=== PATIENT | male | born 1930 ===

== ENCOUNTER 2017-01-18 16:57 | Inpatient (IN) | payer MEDICARE ==
[~2017-01-18] VITALS: Ht 160 cm; Wt 68.0 kg
--- NOTE | 2017-01-19 17:30 | NUR ---
Admitted patient in Acute Rehab Unit accompanied by med response per pedro. VSS with tolerable pain over right hip. Alert awake and oriented. Not in apparent distress. Patient oriented to unit and call light use. Routine admission care rendered.
[2017-01-19] MEDS ORDERED: LEVO750T21 PO (18:52)
[2017-01-19] MEDS ORDERED: RIVA20TA PO (18:57)
--- NOTE | 2017-01-19 19:00 | NUR ---
Received pt resting comfortably in bed. AAO x4. On room air. No SOB. No acute distress noted. No complaints of pain or discomfort at this time. Dressing noted on right hip, clean and intact. Pt is ambulatory. Requested commode and provided. Safety measures maintained. Call light within reach. Will continue to monitor.
--- NOTE | 2017-01-19 19:00 | NUR ---
Called and paged Dr. Anat marin will call back. Endorsed patient accordingly.
[2017-01-19] MEDS ORDERED: BETA15CR TP (19:22)
[2017-01-19] MEDS ORDERED: LEVO100T10 PO (19:22)
[2017-01-19] MEDS ORDERED: ATOR20TA PO (19:22)
[2017-01-19] MEDS ORDERED: METO25TA6 PO (19:22)
[2017-01-19] MEDS ORDERED: PANT40TA2 PO (19:22)
[2017-01-19] MEDS ORDERED: BENA20TA2 PO (19:22)
[2017-01-19] MEDS ORDERED: TAMS0.4C34 PO (19:22)
[2017-01-19] MEDS ORDERED: ASPI81TA31 PO (19:22)
[2017-01-19 20:00] VITALS: BP 107/53
--- NOTE | 2017-01-19 21:00 | NUR ---
Changed pt's dressing on right hip surgical wound sites (3) as per Dr. Montalvo's order. No ointment or cream to be applied. Kept clean and covered with Mepilex. Wounds are appropriately healing, clean and dry. No drainage. No signs of infection noted. Will continue to monitor.
--- NOTE | 2017-01-19 22:40 | NUR ---
Patient c/o pain on the right knee. Ice pack given. Pt verbalized it relieves pain just a little bit. Requesting for tramadol. No pain medication prescribed at this time. Will notify Dr. Coppola. Will continue to monitor patient.
--- NOTE | 2017-01-19 22:45 | NUR ---
Paged Dr. Coppola. No response. Will continue to monitor patient.
--- NOTE | 2017-01-19 23:15 | NUR ---
Paged Dr. Coppola again for patient's pain medication. No response. Will continue to monitor patient.
--- NOTE | 2017-01-19 23:30 | NUR ---
Dr. Coppola called back. Received telephone order for Tramadol Hcl 50 mg PO Q6H PRN for patient's pain. Will carry out order. Will continue to monitor patient.
--- NOTE | 2017-01-20 | NUR ---
Patient decided not to take Tramadol at this time. He verbalized that the ice packs are helping with the pain. Will continue to monitor.
--- NOTE | 2017-01-20 06:14 | NUR ---
Patient slept intermittently at night. Encouraged use of incentive spirometer while awake. Ice pack provided to decrease pain on right hip, tolerating well. Patient is ambulatory using walker. BRP/ Bedside commode. No signs of acute distress noted. Safety measures observed. Call light within reach. Continue to monitor.
[2017-01-20 13:39] VITALS: BP 122/66
--- NOTE | 2017-01-20 15:40 | NUR ---
pt seen on rounding. pt showed no signs of acute distress. pt seen by dr tariq. pt states that he had bronchitis. assessed o2 sat at 91. pt given 02 therapy nc at 2 liters. pt started to saturate at 95. blood clutures done and pending. meds given and participated in therapy. pt given tramadol for pain. pt tolerated therapy failly. pt encouraged lto use incentive spirometry. will continue to monitor for complications.
--- NOTE | 2017-01-20 17:32 | NUR ---
dressings changed no signs of infection. assisted to the bathroom and had a bm and voided.
--- NOTE | 2017-01-20 18:35 | NUR ---
pt stable throughout the day. 02 saturation decreased and applied o2 l nc satting at 95%. incentive spirometer used and no changes on 02 saturatio . pt stil has brusing and taking xarelto. wound site cleaned with betadine and reapplied new mepilex dressing. pt had no bm but voided using commode. pt seen by dr tariq. pt gets keplex for bronchitis and tramadol for pian. bp meds for htn however normal bp. blood cultures and respiratory cultures pending. cbc cmp mag and phos ordered for tomorrow. will endorse to awake overnight counselor.
[2017-01-20 19:54] VITALS: BP 101/60
--- NOTE | 2017-01-21 04:26 | NUR ---
AAOX4 OOB TO BEDSIDE COMMODE. NEEDED. VOIDING FREQUENTLY. VITAL SIGNS TAKEN AND RECORDED.BP 101/60 HR 88 RESP 18 TEMP 98.9 95% ON OXYGEN 2L. ATTENDED TO NEEDS. PATIENT KEEP ON GETTING IN AND OUT OF BED, SAY HE IS VERY UNCOMFORTABLE. SAT IN WHEELCHAIR FOR A WHILE, STILL CAN'T BE COMFORTABLE. TRAMADOL GIVEN TO RIGHT HIP PAIN. SLIGHT RELIEF NOTED. VOIDING WELL. WILL MONITOR PATIENT. BRUISING NOTED ON RIGHT HIP AREA, TAKES XARELTO.
[2017-01-21 07:49] LABS: BASOPHILS % (AUTO) 0.1 % (0.0-2.0); EOSINOPHILS # (AUTO) 0.3 K/uL (0.0-0.7); EOSINOPHILS % (AUTO) 3.2 % (0.0-7.0); HEMATOCRIT 25.5 % (40-50); HEMOGLOBIN 8.5 G/DL (14.0-18.0); LYMPHOCYTES % (AUTO) 10.4 % (20.5-51.5); MEAN CORPUSCULAR HEMOGLOBIN 29.9 UUG (27.0-31.0); MEAN CORPUSCULAR HGB CONC 33 g/dL (32.0-37.0); MEAN CORPUSCULAR VOLUME 89.7 FL (82.0-92.0); MONOCYTES # (AUTO) 0.9 K/UL (0.1-1.30); MONOCYTES % (AUTO) 9.6 % (0.0-11.0); NEUTROPHILS # (AUTO) 7.6 K/UL (1.8-8.9); NEUTROPHILS % (AUTO) 76.7 % (38.5-71.5); PLATELET COUNT (AUTO) 189 K/UL (150-450); RED BLOOD CELL COUNT(AUTO) 2.85 MIL/UL (4.7-6.1); WHITE BLOOD COUNT (AUTO) 9.8 K/UL (4.0-11.2)
[2017-01-21 07:52] VITALS: BP 132/62
[2017-01-21 08:03] LABS: MAGNESIUM 1.7 mg/dL (1.8-2.4)
[2017-01-21 10:05] LABS: CARBON DIOXIDE 28 mmol/L (21-32); CHLORIDE 100 mmol/L (98-107); GLUCOSE 89 mg/dL (74-106); POTASSIUM 3.9 mmol/L (3.5-5.1); UREA NITROGEN, BLOOD 22 mg/dL (7-18)
--- NOTE | 2017-01-21 13:22 | NUR ---
DAILY NOTE WANTS TYLENOL ONLY FOR PAIN DOES NOT LIKE ULTRAM. MD STARKS ORDERED TYLENOL PRN PAIN FOR HIM.
[2017-01-21 20:00] VITALS: BP 77/48
--- NOTE | 2017-01-21 20:00 | NUR ---
Received pt on bed alert and awake. Able to make needs known. No acute distress noted. No complaints of pain. On o2 2L/min, breathing even and unlabored with normal respirations. Call light within reach. All needs attended.
--- NOTE | 2017-01-21 21:00 | NUR ---
Pt complained of shivering. Pt was diaphoretic and pale upon assessment. Vital signs taken, BP was 77/47, HR 80, RR 20, Temp 98. 1, O2 94% on 2L NC. Immediately placed the pt on trendelenburg position, rechecked BP, BP went up to 90/48. However, after 5 mins it went down to 88/45 again. MD made aware. MD ordered IV 500 NS bolus. Order carried out and done. Will continue to monitor.
--- NOTE | 2017-01-21 22:00 | NUR ---
BP rechecked, BP went up to 92/48. However, after the IV fluid was infused BP went down to 84/47 again. Called [facility]. ordered another 1L of NS bolus. Order carried out and done. Will continue to monitor pt.
[2017-01-22 00:43] VITALS: BP 100/50
--- NOTE | 2017-01-22 02:10 | NUR ---
IV fluids given as ordered, BP 106/54. No acute distress noted. Pt verbalized that he feels much better now. No other complaints noted.
[2017-01-22 02:14] VITALS: BP 106/54
[2017-01-22 07:10] VITALS: BP 115/61
--- NOTE | 2017-01-22 07:11 | NUR ---
Pt slept well throughout the shift. Vital signs stable, BP 115/61, HR 82, RR 18, temp 98.4, O2 sat 98% on 2L NC. Denies any pain. All needs anticipated. Will endorse to the day shift nurse.
[2017-01-22 07:26] LABS: EOSINOPHILS # (AUTO) 0.5 K/uL (0.0-0.7); HEMATOCRIT 24.8 % (40-50); HEMOGLOBIN 8.4 G/DL (14.0-18.0); LYMPHOCYTES # (AUTO) 1.4 K/UL (0.8-4.8); LYMPHOCYTES % (AUTO) 11.9 % (20.5-51.5); MEAN CORPUSCULAR HEMOGLOBIN 30.9 UUG (27.0-31.0); MEAN CORPUSCULAR HGB CONC 34 g/dL (32.0-37.0); MEAN CORPUSCULAR VOLUME 90.8 FL (82.0-92.0); MONOCYTES # (AUTO) 0.9 K/UL (0.1-1.30); MONOCYTES % (AUTO) 7.9 % (0.0-11.0); NEUTROPHILS % (AUTO) 76.2 % (38.5-71.5); PLATELET COUNT (AUTO) 225 K/UL (150-450); RED BLOOD CELL COUNT(AUTO) 2.73 MIL/UL (4.7-6.1); WHITE BLOOD COUNT (AUTO) 11.8 K/UL (4.0-11.2)
[2017-01-22 07:30] VITALS: BP 119/62
[2017-01-22 07:42] LABS: CARBON DIOXIDE 25 mmol/L (21-32); CHLORIDE 104 mmol/L (98-107); CREATININE 0.9 mg/dL (0.6-1.3); GLUCOSE 101 mg/dL (74-106); MAGNESIUM 1.9 mg/dL (1.8-2.4); PHOSPHOROUS 3.5 mg/dL (2.5-4.9); POTASSIUM 3.9 mmol/L (3.5-5.1); UREA NITROGEN, BLOOD 19 mg/dL (7-18)
--- NOTE | 2017-01-22 09:36 | NUR ---
DAILY NOTE D/T THE EPISODE OF HYPOTENSION AND EXCESS BM AN DIARRHEA LAST NIGHT A RESULT OF TAKING LACTULOSE ORDERED FOR CONSTIPATION. HE HAS REFUSED HIS MORNING B/P MEDS AND DAILY SOFTENERS. B/P 110/62. STILL WITH FLATUS AND LOOSE STOOLS
--- NOTE | 2017-01-22 12:25 | NUR ---
Band Singer: SW met with pt, , and daughter at bedside to assess for needs and provide support. Pt is an 86-year-old male admitted to ARU for a right hip fracture. While in ARU pt will comply to rehab goals in order to strengthen functional decline and impaired mobility. Pt presented in a calm and cooperative mood during interview. When asked about his ARU admission pt stated "well I broke my leg and have other medical issues I'm working on." Pt did appear somewhat guarded, but did provide information. Per pt, he lives at home with his who was also present. Pt appears to have a strong support system, as family was present. He reported to use a cane and walker at home. Per pt, he was independent prior to being hospitalized. Pt stated his goal is to "walk again." SW engaged in active listening. SW provided emotional and supportive counseling. SW will provide linkage to community resources. SW will continue to be available as needed.
--- NOTE | 2017-01-22 19:30 | NUR ---
Received patient laying in bed. Alert and verbally responsive. Able to make needs known. Denies any pain and discomfort. No acute distress. No SOB. IV site on right hand. Patent and intact. No s/s of infiltration or bleeding. Kept clean and dry. All needs attended to promptly. Call light within reach. Will continue to monitor. Addendum: 01/22/17 at 2311 by BARBARA KYLE RN Correction: IV site on left hand.
[2017-01-22 20:00] VITALS: BP 112/61
--- NOTE | 2017-01-22 22:00 | NUR ---
Patient c/o spasms in right inner thigh describing them as lasting 10-15 seconds then going away. Pain felt only for awhile then goes away. Per patient, ice pack applied to inner groin area. Per patient it helps. Called [facility] and waiting call back from MD. All needs attended to promptly. Call light within reach. Will continue to monitor. Addendum: 01/22/17 at 2311 by BARBARA KYLE RN 0715: Dr. Danay Gaston called back. Made aware of patients complaints. Per MD, keep applying ice back to affected area. MD aware that patient had right hip fx s/o ORIF. Made patient aware of MD's directions. Pt. in no acute distress at this time. All needs attended to promptly. Call light within reach. Will continue to monitor.
--- NOTE | 2017-01-22 23:53 | NUR ---
Patient sleeping comfortably at this time. Non-labored breathing. No acute distress. No SOB. Will continue to monitor through out the night.
--- NOTE | 2017-01-23 06:07 | NUR ---
Patient slept intermittently through out the night. No c/o of spams to right inner thigh. No discomfort. No acute distress. Assisted to bedside commode as needed. Good pericare provided. Patient reminded to call for help at all times. Verbalizes understanding, but still tries to get OOB without calling. Explained risks and benefits and verbalizes understanding. All needs attended to promptly. Call light within reach. Will continue to monitor. Addendum: 01/23/17 at 0649 by BARBARA KYLE RN Correction: Spasms
[2017-01-23 07:20] VITALS: BP 123/71
--- NOTE | 2017-01-23 08:00 | NUR ---
Received patient awake alert and oriented x4. On bedside commode. Assisted accordingly. Morning care done. Not in apparent distress.
--- NOTE | 2017-01-23 09:00 | NUR ---
Right leg pain rated as 6/10. PRN Tylenol given. Tolerated breakfast well. Ready for occupational therapy.
--- NOTE | 2017-01-23 11:39 | NUR ---
Up with physical therapy. Tolerating therapy well. Pain level lat 4/10. Offered pain medications but refused.
[2017-01-23 19:30] VITALS: BP 123/57
--- NOTE | 2017-01-23 19:30 | NUR ---
RECEIVED PATIENT FROM DAY SHIFT NURSE. SHIFT REPORT GIVEN AT BEDSIDE. PATIENT A/O X4, WITH NO SIGNS OF PAIN OR DISTRESS. PERTINENT ASSESSMENTS DONE. CALL LIGHT PLACED WITHIN REACH OF PATIENT. WILL CONTINUE TO MONITOR PATIENT THROUGH OUT SHIFT.
--- NOTE | 2017-01-23 20:55 | NUR ---
PATIENT STATING THAT RX FOR FLOMAX SHOULD BE 0.8MG QD INSTEAD OF 0.[address] MARION NOTIFIED WITH NEW ORDERS FOR FLOMAX 0.8MG QD. PATIENT WAS ALSO SEEN BY MD HERNANDEZ DURING SHIFT WITH NEW ORDER FOR DIAZEPAM 2 MG PO HS PRN.
--- NOTE | 2017-01-24 06:53 | NUR ---
PATIENT SLEPT COMFORTABLY THROUGH OUT SHIFT. NO SIGNS OF PAIN OR DISCOMFORT. MEDICATIONS ADMINISTERED ORDERED. ALL NEEDS ATTENDED TO.
[2017-01-24 07:30] VITALS: BP 114/55
--- NOTE | 2017-01-24 08:00 | NUR ---
Received patient awake, alert x4. With tolerable pain over R leg, refuses pain medications. Not in any form of distress. No SOB, Spo2 at 95% in RA. Call light within reach.
--- NOTE | 2017-01-24 12:37 | NUR ---
R LEG PAIN RATED 6/10. PRN PAIN MEDICATION GIVEN
--- NOTE | 2017-01-24 13:49 | NUR ---
Interdisciplinary Meeting Summary
--- NOTE | 2017-01-24 15:35 | NUR ---
With daughter at bedside. Was able to go around hospital with wheelchair.
--- NOTE | 2017-01-24 19:30 | NUR ---
RECEIVED PATIENT FROM DAY SHIFT NURSE. PATIENT A/O X4 WITH NO SIGNS OF PAIN OR DISTRESS. PATIENT LYING COMFORTABLY ON BED. PERTINENT ASSESSMENTS DONE. ABLE TO MAKE NEEDS KNOWN. CALL LIGHT PLACED WITHIN REACH OF PATIENT. WILL CONTINUE TO MONITOR PATIENT THROUGH OUT SHIFT.
[2017-01-24 20:20] VITALS: BP 93/51
[2017-01-24 20:51] VITALS: BP 93/51
[2017-01-24 23:00] VITALS: BP 103/60
--- NOTE | 2017-01-25 06:44 | NUR ---
PATIENT SLEPT INTERMITTENTLY THROUGH THE NIGHT. NO SIGNS OF PAIN OR DISCOMFORT. NO SOB. ALL NEEDS ATTENDED TO. ALL MEDS ADMINISTERED ORDERED. SHIFT REPORT TO BE GIVEN AT BEDSIDE TO DAY SHIFT NURSE.
--- NOTE | 2017-01-25 09:19 | NUR ---
PT REPORT RECEIVED, BOARD UPDATED, AND PT ASSESSED. PT DENIES ANY PAIN AND NO DISTRESS NOTED. PT COMPLIANT WITH ROUTINE MORNING MEDICATION ADMINISTRATION. PT REFUSED ORDERED DOSE OF SENNOSIDES DOCUSATE SODIUM R/T HAVING BM X2 PRIOR TO 0915 THIS MORNING, STATING THIS IS AN EXCESSIVE AMOUNT. V/S STABLE. ALL COMFORT AND SAFETY MEASURES MET AT THIS TIME. CALL LIGHT PLACED WITHIN REACH WILL CONTINUE TO MONITOR PT STATUS.
[2017-01-25 10:16] VITALS: BP 109/63
--- NOTE | 2017-01-25 12:11 | NUR ---
PT STATES PAIN LEVEL 5/10 REQUESTING 1 TYLENOL TABLET INSTEAD OF THE ORIGINAL 2 TABLET DOSE. MD NOTIFIED, APPROVED ONE TIME ADJUSTMENT. 1 TABLET ADMINISTERED AT THIS TIME, AND SECOND TABLET RETURNED. WILL CONTINUE TO MONITOR PAIN MANAGEMENT.
--- NOTE | 2017-01-25 18:49 | NUR ---
PT SITTING COMFORTABLY UP IN BED. PT DENIES ANY PAIN SINCE THIS AFTERNOON. ALL COMFORT AND SAFETY MEASURES HAVE BEEN ENSURED. CALL LIGHT AND PERSONAL ITEMS ARE WITHIN REACH. WILL CONTINUE TO MONITOR AND ENDORSE ACADEMIC ADVISEMENT DIRECTOR.
--- NOTE | 2017-01-25 20:00 | NUR ---
Received pt on bed alert, awake and oriented x4. Able to make needs known. No s/s distress. No complaints of pain or discomfort during this time. No SOB. Vital signs stable, BP 97/50, HR 68, RR 18, Temp 97.4, O2 sat 96% RA. All needs attended.
[2017-01-25 20:56] VITALS: BP 88/53
--- NOTE | 2017-01-25 21:00 | NUR ---
Pt has an order for norco PRN for pain, however, the pt wants this medication to be changed to tramadol. Assessed patient's pain level, it was 3/10. Offered tylenol PRN, pt agreed and after taking the medication pt verbalized that he changed his mind regarding the tramadol and he'll just ask for norco if needed.
[2017-01-25 21:30] VITALS: BP 97/50
--- NOTE | 2017-01-25 21:30 | NUR ---
Reassessed patient, pt sleeping comfortably. No acute distress noted. No complaints of pain during this time. All needs attended.
--- NOTE | 2017-01-26 05:40 | NUR ---
Patient slept well. No acute distress noted. No complaints of pain or discomfort. Assisted to the commode, pt tolerated well. Frequently checked for safety. Encouraged to verbalize needs and concerns and to call for assistance. Call light within reach. All needs attended
[2017-01-26 07:43] LABS: BASOPHILS % (AUTO) 0.3 % (0.0-2.0); EOSINOPHILS # (AUTO) 0.1 K/uL (0.0-0.7); EOSINOPHILS % (AUTO) 1.3 % (0.0-7.0); HEMATOCRIT 24.6 % (36.7-47.1); HEMOGLOBIN 8.7 g/dL (12.5-16.3); LYMPHOCYTES # (AUTO) 1.9 K/uL (20.0-40.0); LYMPHOCYTES % (AUTO) 16.4 % (20.5-51.5); MEAN CORPUSCULAR HEMOGLOBIN 31.5 uug (23.8-33.4); MEAN CORPUSCULAR HGB CONC 35 g/dL (32.5-36.3); MEAN CORPUSCULAR VOLUME 89.8 fL (73.0-96.2); MONOCYTES # (AUTO) 0.8 K/uL (2.0-10.0); MONOCYTES % (AUTO) 7.5 % (0.0-11.0); NEUTROPHILS # (AUTO) 8.4 K/uL (1.8-8.9); NEUTROPHILS % (AUTO) 74.5 % (38.5-71.5); PLATELET COUNT (AUTO) 302 K/uL (152-348); RED BLOOD CELL COUNT(AUTO) 2.74 MIL/uL (4.06-5.63); WHITE BLOOD COUNT (AUTO) 11.3 K/uL (3.6-10.2)
[2017-01-26 07:55] LABS: THYROID STIMULATING HORMONE 9.953 mIU/mL (0.358-3.740)
[2017-01-26 08:23] LABS: ALANINE AMINOTRANSFERASE 32 U/L (16-63); ALKALINE PHOSPHATASE 62 U/L (50-136); ASPARTATE AMINOTRANSFERASE 33 U/L (15-37); BILIRUBIN,TOTAL 1.2 mg/dL (0.2-1.0); CARBON DIOXIDE 29 mmol/L (21-32); CHLORIDE 103 mmol/L (98-107); CHOLESTEROL 95 mg/dL (<200); CREATININE 0.9 mg/dL (0.6-1.3); GLUCOSE 107 mg/dL (74-106); HDL CHOLESTEROL 32 mg/dL (40-60); MAGNESIUM 1.6 mg/dL (1.8-2.4); PHOSPHOROUS 3.9 mg/dL (2.5-4.9); POTASSIUM 3.9 mmol/L (3.5-5.1); TOTAL PROTEIN, SERUM 5.4 g/dL (6.4-8.2); TRIGLYCERIDES 116 MG/DL (30-150); UREA NITROGEN, BLOOD 11 mg/dL (7-18); URIC ACID 4.2 mg/dL (3.5-7.2)
[2017-01-26 08:31] VITALS: BP 92/59
--- NOTE | 2017-01-26 10:32 | NUR ---
pt seen on rounding. pt had low blood pressure. pt asympotmatic satting wnl on o2. pt room air and tolerates. no cough noted. witheld bp meds. pt states that he gets too much bp meds. pt also concerned about tylenol overdosage and requests to speak with dr acosta. pt tolerated therapy and given tylenol for pain. labs wbc slightly increase. will cotninue to monitor.
[2017-01-26 13:33] LABS: BAND % (MANUAL) 3 % (0-10); LYMPHOCYTES % (MANUAL) 14 % (20-40); METAMYELOCYTES % 4 % (0-1); MONOCYTES % (MANUAL) 8 % (2-10); MYELOCYTES % 2 % (0-0); NEUTROPHILS % (MANUAL) 69 % (42-75)
--- NOTE | 2017-01-26 16:57 | NUR ---
PT REQUESTS TO SEE DAVID TO CLARIFY MEDICATIONS. PT STATES THAT HE DOESNT SLEEP WEEL AND HAS LUCID DREAMS DURING THE DAY.
--- NOTE | 2017-01-26 19:30 | NUR ---
Received patient sitting on bed, watching TV. AAO x4. No acute distress noted. Pt seen by Dr. Montalvo. Vital signs WNL, except BP 91/60. Safety measures maintained. Call light within reach. Will continue to closely monitor patient.
[2017-01-26 20:00] VITALS: BP 91/60
--- NOTE | 2017-01-26 20:00 | NUR ---
Patient is taking Flomax 0.8 mg PO daily in the morning. Dr. Montalvo ordered to change it to HS. talked about this with the patient. Will follow.
--- NOTE | 2017-01-27 05:42 | NUR ---
Patient slept intermittently t/o the night. C/o pain on the hip and leg area. Repositioned patient. Pain unrelieved by repositioning. Gave pain medication as prescribed. Assisted to bedside commode as needed. No signs of acute distress noted. All needs attended to promptly. Safety measures maintained. Call light within reach. Continue to monitor.
--- NOTE | 2017-01-27 07:30 | NUR ---
Received patient laying in bed, resting and watching TV. AAO x4. No acute distress noted. C/o pain on the right hip 10/30. Vital signs stable. Safety measures maintained. Call light within reach. Will continue to monitor. Addendum: 01/27/17 at 2119 by Ramiro Lechuga RN Wrong time. Not 0730, but 1930.
--- NOTE | 2017-01-27 07:42 | NUR ---
Patient noted sitting in wheelchair alert and awake, complains of a pain level 4/10 but states he does not need pain medication yet instead he will elevate right leg, no signs of distress noted, no shortness of breath noted.
[2017-01-27 08:19] VITALS: BP 86/43
--- NOTE | 2017-01-27 19:30 | NUR ---
Received patient laying in bed, resting and watching TV. AAO x4. No acute distress noted. C/o pain on the right hip 10/30. Vital signs stable. Safety measures maintained. Call light within reach. Will continue to monitor.
[2017-01-27 20:14] VITALS: BP 112/56
--- NOTE | 2017-01-28 05:40 | NUR ---
Patient slept comfortably at night. Vital signs stable. No acute distress noted. No c/o pain. Assisted to restroom as needed. Medications given as prescribed. All needs attended to promptly. Safety measures maintained. Call light within reach. Will endorse to day shift RN. Continue to monitor.
[2017-01-28 07:10] VITALS: BP 110/56
--- NOTE | 2017-01-28 19:30 | NUR ---
Received patient sitting on a chair, resting and watching TV. AAO x4. No signs of acute distress noted. No SOB. Safety measures maintained. Call light within reach. Will continue to monitor.
[2017-01-28 20:00] VITALS: BP 91/48
--- NOTE | 2017-01-29 05:50 | NUR ---
Slept intermittently at night. C/o pain and asked for pain medication. Gave medication as prescribed. All needs attended t/o the night. No acute distress noted. No SOB. Vital signs stable. Safety measures maintained. Call light within reach. Will give shift report at bedside. Continue to monitor.
--- NOTE | 2017-01-29 07:00 | NUR ---
Received patient asleep, lying on bed with head of bed elevated above 30 degrees, no moaning or facial grimace noted. call light placed within reach. patient easily aroused. Responsive to verbal and tactile stimuli. All needs were attended and anticipated. Encouraged patient to use call light whenever assistance is needed.
[2017-01-29 07:05] VITALS: BP 107/49
--- NOTE | 2017-01-29 09:53 | NUR ---
Patient awake, alert and oriented, doing physical therapy in the rehab room without SOB, distress or discomforts at this time. Will continue to monitor.
--- NOTE | 2017-01-29 13:35 | NUR ---
patient awake, alert and oriented sitting on the chair talking to family members at bedside with no SOB, distress or any discomforts. call light placed within patient's reach. Will continue to monitor.
--- NOTE | 2017-01-29 15:20 | NUR ---
Patient awake, alert and oriented, sitting on his wheelchair inside the room with no complaints of pain or discomforts at this time. No SOB or distress noted. Call light noted within reach. Will continue to monitor.
--- NOTE | 2017-01-29 18:48 | NUR ---
Patient awake, alert sitting on his wheelchair with no SOB, distress or any discomforts at this time. All needs were attended and anticipated. call light within reach. Encouraged patient to use call light whenever assistance is needed.
--- NOTE | 2017-01-29 19:30 | NUR ---
Received pt awake, alert and oriented, sitting at the edge of the bed. Bed locked, in lowest position and side rails up x 2. Assisted into bed. HOB elevated 45 degrees. No acute distress noted. Pt is verbally responsive and able to make needs known. Denies pain or discomfort at this time. All safety measures and fall precautions maintained. Call light within reach. Will continue to monitor.
[2017-01-29 20:25] VITALS: BP 107/52
--- NOTE | 2017-01-30 06:14 | NUR ---
Pt slept well throughout the shift. Verbally responsive and able to make needs known. All needs anticipated and met promptly. No acute distress noted. Denies pain or discomfort. Assisted to use bedside commode x 3. Tolerated all medications well. All safety measures and fall precautions maintained. Call light within reach. Will continue to monitor.
[2017-01-30 08:06] VITALS: BP 112/51
--- NOTE | 2017-01-30 20:00 | NUR ---
Received pt on bed, awake, alert and oriented x4. Able to make needs known. No complaints of pain or discomfort during this time. No acute distress noted. All due meds given as ordered and well tolerated. Vital signs stable, BP 101/52, HR 92, RR 20, Temp 98.4. Call light within reach. All needs attended
[2017-01-30 20:42] VITALS: BP 82/53
[2017-01-30 22:57] VITALS: BP 101/52
--- NOTE | 2017-01-31 05:37 | NUR ---
Pt slept well throughout the shift. No s/s distress. Complained of right hip pain, medicated with tramadol as ordered. Relief noted. Safety precautions maintained. Call light within reach. All needs met
--- NOTE | 2017-01-31 07:50 | NUR ---
SBAR RECEIVED FROM MANAGER FASHION NURSE, PATIENT ASLEEP IN BED, STATES PAIN LEVEL IS A 4/10 BUT DENIES THE NEED FOR PAIN MEDICATION, NO SIGNS OF DISTRESS, CALL LIGHT IN REACH, BED LOCKED AND IN LOWEST POSITION. ALL NEEDS MET
[2017-01-31 08:38] VITALS: BP 116/63
--- NOTE | 2017-01-31 14:24 | NUR ---
INTERDISCIPLINARY REHAB MEETING
--- NOTE | 2017-01-31 19:20 | NUR ---
Received pt in bed, awake alert and oriented, watching TV. Verbally responsive and able to make needs known. Denies pain or discomfort at this time, no acute distress noted. All safety measures and fall precautions maintained. Call light within reach. Will continue to monitor.
[2017-01-31 20:48] VITALS: BP 102/54
--- NOTE | 2017-02-01 06:11 | NUR ---
Pt slept well throughout the shift, waking up intermittently to use bedside commode. Assisted with ambulating to commode. No complaints of pain or discomfort. No acute distress noted. Call light within reach. Tolerated all medications well. All safety measures and fall precautions maintained. Will continue to monitor.
--- NOTE | 2017-02-01 07:51 | NUR ---
PATIENT NOTED SITTING ON SIDE OF THE BED, SBAR RECEIVED FROM NAILER MACHINE, PAIN MEDICATION GIVEN BY NAILER MACHINE NURSE, NO COMPLAINTS OF PAIN AT THIS TIME, NO SIGNS OF DISTRESS NOTED, CALL LIGHT IN REACH, BED LOCKED AND IN THE LOWEST POSITION
[2017-02-01 08:00] VITALS: BP 115/66
--- NOTE | 2017-02-01 13:50 | NUR ---
101/67, 98% ON ROOM AIR, 75 PULSE, 98.1 ORAL TEMP, LOW BLOOD PRESSURE IS A COMMON FINDING, PATIENT LEFT FACILITY AT 1349 VIA WHEEL CHAIR IN PRIVATE CAR, [facility] IN PLACE TO PROVIDE HOME HEALTH SERVICES, DISCHARGE INSTRUCTIONS PROVIDED, EXIT CARE PROVIDED, PHARMACY CALLED FOR MEDICATION EDUCATION, PATIENT STABLE, NO COMPLAINTS OF PAIN, NO SIGNS OF DISTRESS, SURGICAL SITE DRY WITH NO SIGNS OF INFECTION NOTED, MEDICATIONS FAXED TO [facility] ON [address] IN CHART
--- NOTE | 2017-02-01 14:09 | NUR ---
Patient discharged home with [facility]. Also given DMEs, Walker and shower chair to be delivered to patient. Patient also set up with primary physician, Dr. Tacho Chicas.
== END 2017-02-01 13:49 | disposition home health service (06) | DRG 559 ==
LOC: UNDOADMIN 16:57
PROVIDERS: ADMIT Physical Medicine & Rehabilitation Pain Medicine; ATTEND Physical Medicine & Rehabilitation Pain Medicine
DX: S72.141D Displaced intertrochanteric fracture of right femur, subsequent encounter for closed fracture with routine healing (principal); J18.9 Pneumonia, unspecified organism; E43 Unspecified severe protein-calorie malnutrition; I11.0 Hypertensive heart disease with heart failure; D68.59 Other primary thrombophilia; G62.9 Polyneuropathy, unspecified; I50.32 Chronic diastolic (congestive) heart failure; E83.39 Other disorders of phosphorus metabolism; D62 Acute posthemorrhagic anemia; E83.42 Hypomagnesemia; K59.00 Constipation, unspecified; W18.30XD Fall on same level, unspecified, subsequent encounter; I25.2 Old myocardial infarction; I25.10 Atherosclerotic heart disease of native coronary artery without angina pectoris; R26.9 Unspecified abnormalities of gait and mobility; M81.0 Age-related osteoporosis without current pathological fracture; Z96.649 Presence of unspecified artificial hip joint; M19.90 Unspecified osteoarthritis, unspecified site; E03.9 Hypothyroidism, unspecified; G47.00 Insomnia, unspecified; I87.2 Venous insufficiency (chronic) (peripheral); K44.9 Diaphragmatic hernia without obstruction or gangrene; N40.0 Benign prostatic hyperplasia without lower urinary tract symptoms; Z66 Do not resuscitate; I95.89 Other hypotension
CPT/HCPCS: 36415; 82306; 83735; 84100; 84443; 84550; 85025; 87040; 92526; 92610; 97110; 97112; 97116; 97165; 97530; 97535; J2060; J7030; J7040

== ENCOUNTER 2017-08-04 15:31 | Inpatient (IN) | payer MEDICARE ==
[~2017-08-04] VITALS: Ht 160 cm; Wt 71.7 kg
[~2017-08-04 15:31] MED LIST: ASPI81TA31 PO; ATOR20TA PO; BENA20TA2 PO; BETA15CR TP; LEVO100T10 PO; LEVO750T21 PO; METO25TA6 PO; PANT40TA2 PO; RIVA20TA PO
[2017-08-04] MEDS ORDERED: ACET-2154 PO (15:40)
[2017-08-04] MEDS ORDERED: BENA40TA67 PO (15:49)
[2017-08-04] MEDS ORDERED: ASPI-612 PO (15:49)
[2017-08-04] MEDS ORDERED: GABA-536 PO (15:49)
[2017-08-04] MEDS ORDERED: HYDR-3326 PO (15:49)
[2017-08-04] MEDS ORDERED: DEXA4VIA47 IV (15:49)
[2017-08-04] MEDS ORDERED: MAGN400O6 PO (16:07)
[2017-08-04] MEDS ORDERED: HYDR-3980 PO (16:07)
[2017-08-04] MEDS ORDERED: TAMS-3 PO (16:07)
[2017-08-04] MEDS ORDERED: MAG355OR18 PO (16:07)
[2017-08-04] MEDS ORDERED: ZOLP5TAB8 PO (16:07)
[2017-08-04] MEDS ORDERED: LIDO30AD10 TD (16:07)
[2017-08-04] MEDS ORDERED: LEVO100T10 PO (16:07)
[2017-08-04] MEDS ORDERED: PANT40TA4 PO (16:07)
[2017-08-04] MEDS ORDERED: ONDA4TAB10 PO (16:07)
[2017-08-04] MEDS ORDERED: METO37.5 PO (16:07)
[2017-08-04] MEDS ORDERED: Z GUARD REMEDY PASTE 57 GM TUBE TOP PRN (16:30)
[2017-08-04] MEDS ORDERED: BETAMET DP 0.05% AUGM CR 15 GM CREAM.GM. TP SCH (17:30)
[2017-08-04] MEDS ORDERED: ZOLPIDEM 5 MG TABLET PO PRN (17:30)
[2017-08-04] MEDS ORDERED: ONDANSETRON HCL 4 MG TABLET PO PRN (17:30)
[2017-08-04] MEDS ORDERED: HYDROCODONE/APAP 10-325 MG TABLET PO SCH (17:30)
[2017-08-04] MEDS ORDERED: DEXAMETHASONE SOD PHOSPHATE 4 MG INJ IV SCH (18:00)
[2017-08-04] MEDS: DEXAMETHASONE SOD PHOSPHATE 4 MG INJ IV SCH (18:56)
[2017-08-04] MEDS: DOCUSATE SODIUM 100 MG CAPSULE PO SCH (20:42)
[2017-08-04] MEDS: ATORVASTATIN 20 MG TABLET PO SCH (20:42)
[2017-08-04 20:56] VITALS: BP 135/66
[2017-08-05] MEDS: DEXAMETHASONE SOD PHOSPHATE 4 MG INJ IV SCH ×4 (00:26→17:27)
[2017-08-05] MEDS: LEVOTHYROXINE SODIUM 100 MCG TABLET PO SCH (06:15)
[2017-08-05] MEDS: PANTOPRAZOLE SODIUM 40 MG TABLET.DR PO SCH (06:15)
[2017-08-05] MEDS: HYDROCODONE/APAP 10-325 MG TABLET PO PRN ×2 (08:02→21:37)
[2017-08-05] MEDS: GABAPENTIN 400 MG CAPSULE PO SCH ×3 (08:52→17:27)
[2017-08-05] MEDS: ASPIRIN 81 MG TAB.CHEW PO SCH (08:52)
[2017-08-05] MEDS ORDERED: BENAZEPRIL HCL 20 MG TABLET PO SCH (09:00)
[2017-08-05] MEDS ORDERED: METOPROLOL TARTRATE 25 MG TABLET PO SCH (09:00)
[2017-08-05] MEDS ORDERED: LIDOCAINE 5% PATCH TD SCH (09:00)
[2017-08-05] MEDS ORDERED: LEVOFLOXACIN 750 MG TABLET PO SCH (09:00)
[2017-08-05] MEDS: BENAZEPRIL HCL 5 MG TABLET PO SCH (09:00)
[2017-08-05] MEDS ORDERED: TAMSULOSIN HCL 0.4 MG CAP.SR.24H PO SCH (09:00)
[2017-08-05 09:04] VITALS: BP 134/75
[2017-08-05 20:00] VITALS: BP 119/63
[2017-08-05] MEDS: DOCUSATE SODIUM 100 MG CAPSULE PO SCH (20:22)
[2017-08-05] MEDS: ATORVASTATIN 20 MG TABLET PO SCH (20:23)
[2017-08-05] MEDS: METOPROLOL TARTRATE 25 MG TABLET PO SCH (20:23)
[2017-08-05] MEDS: TAMSULOSIN HCL 0.4 MG CAP.SR.24H PO SCH (20:23)
[2017-08-05] MEDS: DIAZEPAM 5 MG TABLET PO PRN (20:29)
[2017-08-05] MEDS: ACETAMINOPHEN 325 MG TABLET PO PRN (20:29)
[2017-08-06] MEDS: DEXAMETHASONE SOD PHOSPHATE 4 MG INJ IV SCH ×4 (00:48→17:29)
[2017-08-06] MEDS: LEVOTHYROXINE SODIUM 100 MCG TABLET PO SCH (07:27)
[2017-08-06] MEDS: PANTOPRAZOLE SODIUM 40 MG TABLET.DR PO SCH (07:27)
[2017-08-06] MEDS: METOPROLOL TARTRATE 25 MG TABLET PO SCH ×2 (08:48→21:33)
[2017-08-06] MEDS: ASPIRIN 81 MG TAB.CHEW PO SCH (08:48)
[2017-08-06] MEDS: GABAPENTIN 400 MG CAPSULE PO SCH ×3 (08:49→16:26)
[2017-08-06] MEDS: BENAZEPRIL HCL 5 MG TABLET PO SCH (08:49)
[2017-08-06 10:50] VITALS: BP 130/66
[2017-08-06] MEDS ORDERED: BISACODYL 10 MG SUPP.RECT RC PRN (16:15)
[2017-08-06] MEDS: BISACODYL 5 MG TABLET.DR PO PRN (16:26)
[2017-08-06] MEDS: DOCUSATE SODIUM 100 MG CAPSULE PO SCH (21:00)
[2017-08-06 21:05] VITALS: BP 112/59
[2017-08-06] MEDS: ATORVASTATIN 20 MG TABLET PO SCH (21:26)
[2017-08-06] MEDS: TAMSULOSIN HCL 0.4 MG CAP.SR.24H PO SCH (21:26)
[2017-08-06] MEDS: ACETAMINOPHEN 325 MG TABLET PO PRN (21:33)
[2017-08-06] MEDS: DIAZEPAM 5 MG TABLET PO PRN (21:33)
[2017-08-07] MEDS: DEXAMETHASONE SOD PHOSPHATE 4 MG INJ IV SCH ×4 (00:01→17:12)
[2017-08-07] MEDS: LEVOTHYROXINE SODIUM 100 MCG TABLET PO SCH (06:04)
[2017-08-07] MEDS: PANTOPRAZOLE SODIUM 40 MG TABLET.DR PO SCH (06:04)
[2017-08-07 08:00] VITALS: BP 112/62
[2017-08-07] MEDS: ASPIRIN 81 MG TAB.CHEW PO SCH (10:02)
[2017-08-07] MEDS: GABAPENTIN 400 MG CAPSULE PO SCH ×3 (10:02→16:12)
[2017-08-07] MEDS: METOPROLOL TARTRATE 25 MG TABLET PO SCH ×2 (10:03→21:00)
[2017-08-07] MEDS: BENAZEPRIL HCL 5 MG TABLET PO SCH (10:05)
[2017-08-07 13:02] VITALS: BP 112/62
[2017-08-07] MEDS: ACETAMINOPHEN 325 MG TABLET PO PRN ×2 (13:42→21:22)
[2017-08-07 20:33] VITALS: BP 107/62
[2017-08-07] MEDS: DOCUSATE SODIUM 100 MG CAPSULE PO SCH (21:19)
[2017-08-07] MEDS: ATORVASTATIN 20 MG TABLET PO SCH (21:20)
[2017-08-07] MEDS: TAMSULOSIN HCL 0.4 MG CAP.SR.24H PO SCH (21:20)
[2017-08-07] MEDS: DEXAMETHASONE 4 MG TABLET PO SCH (21:21)
[2017-08-07] MEDS: DIAZEPAM 5 MG TABLET PO PRN (21:22)
[2017-08-08] MEDS: LEVOTHYROXINE SODIUM 100 MCG TABLET PO SCH (06:14)
[2017-08-08] MEDS: PANTOPRAZOLE SODIUM 40 MG TABLET.DR PO SCH (06:14)
[2017-08-08 07:30] VITALS: BP 133/74
[2017-08-08] MEDS: METOPROLOL TARTRATE 25 MG TABLET PO SCH ×2 (08:35→21:00)
[2017-08-08] MEDS: ASPIRIN 81 MG TAB.CHEW PO SCH (08:35)
[2017-08-08] MEDS: GABAPENTIN 400 MG CAPSULE PO SCH ×3 (08:35→17:28)
[2017-08-08] MEDS: DEXAMETHASONE 4 MG TABLET PO SCH ×2 (08:35→21:17)
[2017-08-08] MEDS: BENAZEPRIL HCL 5 MG TABLET PO SCH (08:38)
[2017-08-08 19:30] VITALS: BP 113/59
[2017-08-08] MEDS: DOCUSATE SODIUM 100 MG CAPSULE PO SCH (21:16)
[2017-08-08] MEDS: TAMSULOSIN HCL 0.4 MG CAP.SR.24H PO SCH (21:17)
[2017-08-08] MEDS: ACETAMINOPHEN 325 MG TABLET PO PRN (21:18)
[2017-08-08] MEDS: ATORVASTATIN 20 MG TABLET PO SCH (21:19)
[2017-08-08] MEDS: DIAZEPAM 5 MG TABLET PO PRN (21:19)
[2017-08-09] MEDS: LEVOTHYROXINE SODIUM 100 MCG TABLET PO SCH (06:33)
[2017-08-09] MEDS: PANTOPRAZOLE SODIUM 40 MG TABLET.DR PO SCH (06:33)
[2017-08-09] MEDS: ACETAMINOPHEN 325 MG TABLET PO PRN ×3 (06:39→20:23)
[2017-08-09 08:00] VITALS: BP 125/71
[2017-08-09] MEDS: ASPIRIN 81 MG TAB.CHEW PO SCH (09:46)
[2017-08-09] MEDS: DEXAMETHASONE 4 MG TABLET PO SCH ×2 (09:47→20:23)
[2017-08-09] MEDS: GABAPENTIN 400 MG CAPSULE PO SCH ×3 (09:48→17:01)
[2017-08-09] MEDS: BENAZEPRIL HCL 5 MG TABLET PO SCH (09:48)
[2017-08-09] MEDS: METOPROLOL TARTRATE 25 MG TABLET PO SCH ×2 (09:51→20:22)
[2017-08-09] MEDS: DOCUSATE SODIUM 100 MG CAPSULE PO SCH (20:21)
[2017-08-09] MEDS: TAMSULOSIN HCL 0.4 MG CAP.SR.24H PO SCH (20:23)
[2017-08-09] MEDS: DIAZEPAM 5 MG TABLET PO PRN (20:23)
[2017-08-09] MEDS: ATORVASTATIN 20 MG TABLET PO SCH (20:23)
[2017-08-09 20:26] VITALS: BP 103/57
[2017-08-10] MEDS: LEVOTHYROXINE SODIUM 100 MCG TABLET PO SCH (06:31)
[2017-08-10] MEDS: PANTOPRAZOLE SODIUM 40 MG TABLET.DR PO SCH (06:31)
[2017-08-10 08:00] VITALS: BP 120/67
[2017-08-10] MEDS: ASPIRIN 81 MG TAB.CHEW PO SCH (08:08)
[2017-08-10] MEDS: ACETAMINOPHEN 325 MG TABLET PO PRN ×2 (08:08→21:01)
[2017-08-10] MEDS: GABAPENTIN 400 MG CAPSULE PO SCH ×3 (08:08→17:29)
[2017-08-10] MEDS: BENAZEPRIL HCL 5 MG TABLET PO SCH ×2 (08:08→09:00)
[2017-08-10] MEDS: DEXAMETHASONE 4 MG TABLET PO SCH (08:08)
[2017-08-10] MEDS: METOPROLOL TARTRATE 25 MG TABLET PO SCH ×2 (08:09→21:00)
[2017-08-10 15:58] VITALS: BP 125/71
[2017-08-10 19:50] VITALS: BP 110/62
[2017-08-10] MEDS: ATORVASTATIN 20 MG TABLET PO SCH (21:00)
[2017-08-10] MEDS: TAMSULOSIN HCL 0.4 MG CAP.SR.24H PO SCH (21:00)
[2017-08-10] MEDS: DIAZEPAM 5 MG TABLET PO PRN (21:01)
[2017-08-10] MEDS: DOCUSATE SODIUM 100 MG CAPSULE PO SCH (21:01)
[2017-08-11] MEDS: ACETAMINOPHEN 325 MG TABLET PO PRN ×3 (04:30→20:59)
[2017-08-11] MEDS: PANTOPRAZOLE SODIUM 40 MG TABLET.DR PO SCH (06:36)
[2017-08-11] MEDS: LEVOTHYROXINE SODIUM 100 MCG TABLET PO SCH (06:36)
[2017-08-11 06:55] VITALS: BP 108/61
[2017-08-11 06:59] LABS: CARBON DIOXIDE 28 mmol/L (21-32); CHLORIDE 101 mmol/L (98-107); CREATININE 0.8 mg/dL (0.6-1.3); GLUCOSE 84 mg/dL (74-106); PHOSPHOROUS 3.3 mg/dL (2.5-4.9); POTASSIUM 3.9 mmol/L (3.5-5.1); UREA NITROGEN, BLOOD 25 mg/dL (7-18)
[2017-08-11 07:10] LABS: HEMOGLOBIN 11.3 g/dL (12.5-16.3); MEAN CORPUSCULAR HEMOGLOBIN 25.7 uug (23.8-33.4); MONOCYTES # (AUTO) 1.4 K/uL (2.0-10.0)
[2017-08-11 07:54] LABS: EOSINOPHILS % (AUTO) 0.2 % (0.0-7.0); HEMATOCRIT 34.7 % (36.7-47.1); LYMPHOCYTES # (AUTO) 2.3 K/uL (20.0-40.0); LYMPHOCYTES % (AUTO) 19.6 % (20.5-51.5); MEAN CORPUSCULAR HGB CONC 33 g/dL (32.5-36.3); MEAN CORPUSCULAR VOLUME 79.2 fL (73.0-96.2); MONOCYTES % (AUTO) 11.7 % (0.0-11.0); NEUTROPHILS % (AUTO) 68.5 % (38.5-71.5); RED BLOOD CELL COUNT(AUTO) 4.38 MIL/uL (4.06-5.63); WHITE BLOOD COUNT (AUTO) 11.7 K/uL (3.6-10.2)
[2017-08-11 07:55] LABS: PLATELET COUNT (AUTO) 162 K/uL (152-348)
[2017-08-11 08:00] VITALS: BP 107/63
[2017-08-11] MEDS: METOPROLOL TARTRATE 25 MG TABLET PO SCH ×2 (09:00→09:23)
[2017-08-11] MEDS: BENAZEPRIL HCL 5 MG TABLET PO SCH ×2 (09:00→09:25)
[2017-08-11] MEDS: DEXAMETHASONE 4 MG TABLET PO SCH (09:21)
[2017-08-11] MEDS: GABAPENTIN 400 MG CAPSULE PO SCH ×3 (09:21→17:11)
[2017-08-11] MEDS: ASPIRIN 81 MG TAB.CHEW PO SCH (09:23)
[2017-08-11 16:12] VITALS: BP 112/68
[2017-08-11 20:43] VITALS: BP 98/59
[2017-08-11] MEDS: DOCUSATE SODIUM 100 MG CAPSULE PO SCH (20:53)
[2017-08-11] MEDS: TAMSULOSIN HCL 0.4 MG CAP.SR.24H PO SCH (20:53)
[2017-08-11] MEDS: ATORVASTATIN 20 MG TABLET PO SCH (20:53)
[2017-08-11] MEDS: DIAZEPAM 5 MG TABLET PO PRN (20:59)
[2017-08-12] MEDS: LEVOTHYROXINE SODIUM 100 MCG TABLET PO SCH (06:17)
[2017-08-12] MEDS: PANTOPRAZOLE SODIUM 40 MG TABLET.DR PO SCH (06:17)
[2017-08-12] MEDS: HYDROCODONE/APAP 10-325 MG TABLET PO PRN (06:17)
[2017-08-12 07:27] VITALS: BP 102/58
[2017-08-12 08:00] VITALS: BP 112/57
[2017-08-12] MEDS: BENAZEPRIL HCL 5 MG TABLET PO SCH (09:00)
[2017-08-12] MEDS: GABAPENTIN 400 MG CAPSULE PO SCH ×3 (09:14→17:23)
[2017-08-12] MEDS: ASPIRIN 81 MG TAB.CHEW PO SCH (09:14)
[2017-08-12] MEDS: DEXAMETHASONE 4 MG TABLET PO SCH (09:15)
[2017-08-12] MEDS: ACETAMINOPHEN 325 MG TABLET PO PRN ×2 (13:40→20:48)
[2017-08-12 16:11] VITALS: BP 113/56
[2017-08-12 20:25] VITALS: BP 92/58
[2017-08-12] MEDS: DOCUSATE SODIUM 100 MG CAPSULE PO SCH (20:47)
[2017-08-12] MEDS: ATORVASTATIN 20 MG TABLET PO SCH (20:48)
[2017-08-12] MEDS: DIAZEPAM 5 MG TABLET PO PRN (20:48)
[2017-08-12] MEDS: TAMSULOSIN HCL 0.4 MG CAP.SR.24H PO SCH (20:49)
[2017-08-13 04:00] VITALS: BP 102/56
[2017-08-13] MEDS: ACETAMINOPHEN 325 MG TABLET PO PRN ×3 (06:21→18:29)
[2017-08-13] MEDS: LEVOTHYROXINE SODIUM 100 MCG TABLET PO SCH (06:22)
[2017-08-13] MEDS: PANTOPRAZOLE SODIUM 40 MG TABLET.DR PO SCH (06:22)
[2017-08-13] MEDS: DEXAMETHASONE 4 MG TABLET PO SCH (08:06)
[2017-08-13] MEDS: ASPIRIN 81 MG TAB.CHEW PO SCH (08:07)
[2017-08-13] MEDS: GABAPENTIN 400 MG CAPSULE PO SCH ×3 (08:07→16:05)
[2017-08-13] MEDS: BENAZEPRIL HCL 5 MG TABLET PO SCH (08:08)
[2017-08-13 08:25] VITALS: BP 104/67
[2017-08-13 13:47] VITALS: BP 129/65
[2017-08-13 19:54] VITALS: BP 117/66
[2017-08-13] MEDS: ATORVASTATIN 20 MG TABLET PO SCH (20:15)
[2017-08-13] MEDS: DOCUSATE SODIUM 100 MG CAPSULE PO SCH (20:15)
[2017-08-13] MEDS: TAMSULOSIN HCL 0.4 MG CAP.SR.24H PO SCH (20:15)
[2017-08-13] MEDS: HYDROCODONE/APAP 10-325 MG TABLET PO PRN (21:55)
[2017-08-14 05:30] VITALS: BP 145/64
[2017-08-14] MEDS: PANTOPRAZOLE SODIUM 40 MG TABLET.DR PO SCH (06:25)
[2017-08-14] MEDS: LEVOTHYROXINE SODIUM 100 MCG TABLET PO SCH (06:25)
[2017-08-14 07:25] VITALS: BP 132/70
[2017-08-14] MEDS: GABAPENTIN 400 MG CAPSULE PO SCH ×3 (08:04→16:16)
[2017-08-14] MEDS: ASPIRIN 81 MG TAB.CHEW PO SCH (08:04)
[2017-08-14] MEDS: BENAZEPRIL HCL 5 MG TABLET PO SCH (08:04)
[2017-08-14] MEDS: ACETAMINOPHEN 325 MG TABLET PO PRN ×2 (12:12→20:21)
[2017-08-14 15:11] VITALS: BP 100/55
[2017-08-14 20:00] VITALS: BP 112/58
[2017-08-14] MEDS: ATORVASTATIN 20 MG TABLET PO SCH (20:21)
[2017-08-14] MEDS: DOCUSATE SODIUM 100 MG CAPSULE PO SCH (20:21)
[2017-08-14] MEDS: TAMSULOSIN HCL 0.4 MG CAP.SR.24H PO SCH (20:21)
[2017-08-14] MEDS: DIAZEPAM 5 MG TABLET PO PRN (20:21)
[2017-08-14] MEDS: HYDROCODONE/APAP 10-325 MG TABLET PO PRN (23:22)
[2017-08-15 06:00] VITALS: BP 118/64
[2017-08-15] MEDS: PANTOPRAZOLE SODIUM 40 MG TABLET.DR PO SCH (06:49)
[2017-08-15] MEDS: LEVOTHYROXINE SODIUM 100 MCG TABLET PO SCH (06:49)
[2017-08-15 07:12] VITALS: BP 135/64
[2017-08-15] MEDS: ACETAMINOPHEN 325 MG TABLET PO PRN ×3 (07:24→22:59)
[2017-08-15] MEDS: BENAZEPRIL HCL 5 MG TABLET PO SCH (09:00)
[2017-08-15] MEDS: GABAPENTIN 400 MG CAPSULE PO SCH ×3 (09:17→17:23)
[2017-08-15] MEDS: ASPIRIN 81 MG TAB.CHEW PO SCH (09:17)
[2017-08-15 15:43] VITALS: BP 122/59
[2017-08-15] MEDS: BISACODYL 5 MG TABLET.DR PO PRN (17:23)
[2017-08-15 20:10] VITALS: BP 103/64
[2017-08-15] MEDS: ATORVASTATIN 20 MG TABLET PO SCH (20:35)
[2017-08-15] MEDS: TAMSULOSIN HCL 0.4 MG CAP.SR.24H PO SCH (20:35)
[2017-08-15] MEDS: HYDROCODONE/APAP 10-325 MG TABLET PO PRN (20:36)
[2017-08-15] MEDS: DOCUSATE SODIUM 100 MG CAPSULE PO SCH (20:41)
[2017-08-15] MEDS: DIAZEPAM 5 MG TABLET PO PRN (22:55)
[2017-08-15] MEDS ORDERED: ACETAMINOPHEN 325 MG TABLET ONE (22:57)
[2017-08-16 05:13] VITALS: BP 110/66
[2017-08-16] MEDS: PANTOPRAZOLE SODIUM 40 MG TABLET.DR PO SCH (06:34)
[2017-08-16] MEDS: LEVOTHYROXINE SODIUM 100 MCG TABLET PO SCH (06:34)
[2017-08-16 08:00] VITALS: BP 122/58
[2017-08-16] MEDS: GABAPENTIN 400 MG CAPSULE PO SCH ×3 (08:17→17:09)
[2017-08-16] MEDS: ASPIRIN 81 MG TAB.CHEW PO SCH (08:17)
[2017-08-16] MEDS: BENAZEPRIL HCL 5 MG TABLET PO SCH ×2 (08:18→08:47)
[2017-08-16] MEDS: ACETAMINOPHEN 325 MG TABLET PO PRN ×3 (08:27→22:58)
[2017-08-16] MEDS ORDERED: ZOLPIDEM 5 MG TABLET PO PRN (14:45)
[2017-08-16 16:30] VITALS: BP 109/61
[2017-08-16 20:16] VITALS: BP 128/74
[2017-08-16] MEDS: HYDROCODONE/APAP 10-325 MG TABLET PO PRN (20:39)
[2017-08-16] MEDS: ATORVASTATIN 20 MG TABLET PO SCH (20:39)
[2017-08-16] MEDS: TAMSULOSIN HCL 0.4 MG CAP.SR.24H PO SCH (20:39)
[2017-08-16] MEDS: DOCUSATE SODIUM 100 MG CAPSULE PO SCH (20:42)
[2017-08-16] MEDS: DIAZEPAM 5 MG TABLET PO PRN (22:58)
[2017-08-17 05:27] VITALS: BP 103/63
[2017-08-17] MEDS: PANTOPRAZOLE SODIUM 40 MG TABLET.DR PO SCH (06:47)
[2017-08-17] MEDS: LEVOTHYROXINE SODIUM 100 MCG TABLET PO SCH (06:47)
[2017-08-17 08:00] VITALS: BP 110/60
[2017-08-17] MEDS: ASPIRIN 81 MG TAB.CHEW PO SCH (08:18)
[2017-08-17] MEDS: GABAPENTIN 400 MG CAPSULE PO SCH ×3 (08:18→16:14)
[2017-08-17 16:24] VITALS: BP 114/64
[2017-08-17 20:13] VITALS: BP 120/59
[2017-08-17] MEDS: TAMSULOSIN HCL 0.4 MG CAP.SR.24H PO SCH (20:38)
[2017-08-17] MEDS: ATORVASTATIN 20 MG TABLET PO SCH (20:38)
[2017-08-17] MEDS: DOCUSATE SODIUM 100 MG CAPSULE PO SCH (20:41)
[2017-08-17] MEDS: HYDROCODONE/APAP 10-325 MG TABLET PO PRN (21:01)
[2017-08-18] MEDS: DIAZEPAM 5 MG TABLET PO PRN (00:50)
[2017-08-18] MEDS: ACETAMINOPHEN 325 MG TABLET PO PRN (00:50)
[2017-08-18 05:00] VITALS: BP 118/62
[2017-08-18] MEDS: PANTOPRAZOLE SODIUM 40 MG TABLET.DR PO SCH (06:11)
[2017-08-18] MEDS: LEVOTHYROXINE SODIUM 100 MCG TABLET PO SCH (06:11)
[2017-08-18 08:49] VITALS: BP 131/65
[2017-08-18] MEDS: ASPIRIN 81 MG TAB.CHEW PO SCH (09:13)
[2017-08-18] MEDS: GABAPENTIN 400 MG CAPSULE PO SCH ×2 (09:13→13:34)
== END 2017-08-18 13:30 | disposition home health service (06) | DRG 949 ==
PROVIDERS: ADMIT Physical Medicine & Rehabilitation Pain Medicine; ATTEND Physical Medicine & Rehabilitation Pain Medicine
DX: S06.9X9D Unspecified intracranial injury with loss of consciousness of unspecified duration, subsequent encounter (principal); I50.32 Chronic diastolic (congestive) heart failure; I11.0 Hypertensive heart disease with heart failure; I95.2 Hypotension due to drugs; E86.0 Dehydration; E03.9 Hypothyroidism, unspecified; I25.10 Atherosclerotic heart disease of native coronary artery without angina pectoris; K59.00 Constipation, unspecified; M19.90 Unspecified osteoarthritis, unspecified site; M25.78 Osteophyte, vertebrae; W20.8XXD Other cause of strike by thrown, projected or falling object, subsequent encounter; M48.02 Spinal stenosis, cervical region; M81.0 Age-related osteoporosis without current pathological fracture; N40.0 Benign prostatic hyperplasia without lower urinary tract symptoms; R53.1 Weakness; Z82.3 Family history of stroke; Z96.641 Presence of right artificial hip joint; Z87.891 Personal history of nicotine dependence; Z91.81 History of falling; R29.6 Repeated falls; Z82.49 Family history of ischemic heart disease and other diseases of the circulatory system; M25.551 Pain in right hip; T46.5X5A Adverse effect of other antihypertensive drugs, initial encounter; Y92.89 Other specified places as the place of occurrence of the external cause; M54.12 Radiculopathy, cervical region; Z87.81 Personal history of (healed) traumatic fracture
CPT/HCPCS: 36415; 73502; 83735; 84100; 85025; 92507; 92523; 97110; 97112; 97116; 97165; 97530; 97535; A4663; J1100; J8540